=== PATIENT | female | born 1950 | race Caucasian/White ===

== ENCOUNTER 2021-12-04 07:15 | Day surgery (SDC) | payer MEDICARE ==
[2021-12-04] MEDS ORDERED: Propofol 200 MG/20 ML SDV ONE (07:46)
[2021-12-04] MEDS ORDERED: Midazolam 1 MG/ML 2 ML SDV ONE (07:47)
[2021-12-04] MEDS ORDERED: fentaNYL 100 MCG/2 ML SDV ONE (07:47)
[2021-12-04] MEDS ORDERED: Lactated Ringers 1,000 ML IV SCH (08:00)
== END 2021-12-04 10:25 | disposition home or self-care (01) ==
LOC: JP.SDS 07:15
PROVIDERS: ATTEND Family Medicine
DX: K29.50 Unspecified chronic gastritis without bleeding (principal); K21.00 Gastro-esophageal reflux disease with esophagitis, without bleeding; B96.81 Helicobacter pylori [H. pylori] as the cause of diseases classified elsewhere; I10 Essential (primary) hypertension; E66.01 Morbid (severe) obesity due to excess calories; Z88.5 Allergy status to narcotic agent; Z87.891 Personal history of nicotine dependence; Z68.33 Body mass index [BMI] 33.0-33.9, adult
CPT/HCPCS: 43239; J2250; J2704; J3010; J7120

== ENCOUNTER 2022-11-03 06:29 | Day surgery (SDC) | payer MEDICARE ==
[2022-11-03] MEDS: Lactated Ringers 1,000 ML IV SCH (07:27)
[2022-11-03] MEDS ORDERED: Propofol 200 MG/20 ML SDV ONE (07:34)
[2022-11-03] MEDS ORDERED: fentaNYL 100 MCG/2 ML SDV ONE (07:34)
== END 2022-11-03 09:16 | disposition home or self-care (01) ==
LOC: JP.SDS 06:29
PROVIDERS: ATTEND Family Medicine
DX: Z12.11 Encounter for screening for malignant neoplasm of colon (principal); D12.5 Benign neoplasm of sigmoid colon; G89.29 Other chronic pain; J45.909 Unspecified asthma, uncomplicated; R00.2 Palpitations; M79.18 Myalgia, other site; Z88.5 Allergy status to narcotic agent; Z88.8 Allergy status to other drugs, medicaments and biological substances; Z98.890 Other specified postprocedural states
CPT/HCPCS: 45380; J2704; J3010; J7120

== ENCOUNTER 2024-01-15 08:22 | Emergency (ER) | payer MEDICARE ==
[2024-01-15] MEDS: LORazepam 0.5 MG Tab PO ONE (09:45)
[2024-01-15 09:48] LABS: BASOPHILS PERCENT AUTO 0.2 % (0.1-1.3); EOSINOPHILS ABSOLUTE AUTO 0.08 K/uL (0.00-0.40); EOSINOPHILS PERCENT AUTO 1.4 % (0.0-5.4); HEMATOCRIT 36.5 % (34.3-46.0); HEMOGLOBIN 12.8 g/dL (11.2-15.5); IMMATURE GRAN PERCENT AUTO 0.3 % (0.0-0.7); LYMPHOCYTES ABSOLUTE AUTO 1.52 K/uL (0.8-3.3); LYMPHOCYTES PERCENT AUTO 26.5 % (11.4-47.7); MEAN CORPUSCULAR HEMOGLOBIN 31.8 pg (31.6-35.5); MEAN CORPUSCULAR HGB CONC 35.1 g/dL (31.6-35.5); MEAN CORPUSCULAR VOLUME 90.8 fL (81.4-99.0); MONOCYTES ABSOLUTE AUTO 0.53 K/uL (0.20-0.90); MONOCYTES PERCENT AUTO 9.2 % (3.3-12.6); NEUTROPHILS ABSOLUTE AUTO 3.58 K/uL (1.0-7.6); NEUTROPHILS PERCENT AUTO 62.4 % (40.0-78.1); PLATELET COUNT,PLT 213 K/uL (130-375); RED BLOOD CELL COUNT 4.02 M/uL (3.77-5.24); WHITE BLOOD CELL COUNT,WBC 5.7 K/uL (3.2-11.0)
[2024-01-15 09:49] LABS: BASOPHILS ABSOLUTE AUTO 0.01 K/uL (0.00-0.10); IMMATURE GRAN ABSOLUTE AUTO 0.02 K/uL (0.00-0.23)
[2024-01-15 10:03] LABS: CALCIUM 9.6 mg/dL (8.5-10.1); CREATININE 0.9 mg/dL (0.6-1.0); EST CRCL DRUG DOSING (CG) 44.69 mL/min; MAGNESIUM 1.8 mg/dL (1.8-2.4); POTASSIUM,K 4.6 mmol/L (3.6-5.2)
[2024-01-15 10:04] LABS: ANION GAP 12.6 mmol/L (5.0-14.0)
[2024-01-15] MEDS: LORazepam 1 MG Tab PO ONE (11:41)
== END 2024-01-15 13:10 | disposition home or self-care (01) ==
LOC: EDBD → MERGE 08:22 → JP.ED 08:22
DX: R06.6 Hiccough (principal); I10 Essential (primary) hypertension; E78.00 Pure hypercholesterolemia, unspecified; J45.909 Unspecified asthma, uncomplicated; J98.6 Disorders of diaphragm; Z88.8 Allergy status to other drugs, medicaments and biological substances; Z79.899 Other long term (current) drug therapy; Z90.49 Acquired absence of other specified parts of digestive tract; Z90.710 Acquired absence of both cervix and uterus
CPT/HCPCS: 36415; 71046; 80048; 83735; 85025; 99285; A9270

== ENCOUNTER 2024-10-25 07:20 | Day surgery (SDC) | payer MEDICARE ==
[2024-10-25] MEDS ORDERED: Propofol 200 MG/20 ML SDV ONE (07:21)
[2024-10-25] MEDS ORDERED: fentaNYL 100 MCG/2 ML SDV ONE (07:21)
[2024-10-25] MEDS: Lactated Ringers 1,000 ML IV SCH (08:09)
== END 2024-10-25 10:13 | disposition home or self-care (01) ==
LOC: JP.SDS 07:20
PROVIDERS: ATTEND Surgery
DX: K22.89 Other specified disease of esophagus (principal); I10 Essential (primary) hypertension; E66.9 Obesity, unspecified
CPT/HCPCS: 00731; 43239; 88305; J2704; J3010; J7120